=== PATIENT | female | born 1930 | race Caucasian/White ===

== ENCOUNTER 2017-04-04 12:47 | Inpatient (IN) | payer OTHER ==
[~2017-04-04] VITALS: Ht 175.3 cm; Wt 37.6 kg
[2017-04-04 13:00] VITALS: Ht 175.3 cm; Wt 37.6 kg
[2017-04-04] MEDS ORDERED: CARTIA XT120 MG PO (13:13)
[2017-04-04] MEDS ORDERED: DILTIAZEM HCL60 M1 PO (13:14)
[2017-04-04] MEDS ORDERED: LIPI10 PO (13:14)
[2017-04-04] MEDS ORDERED: DIGITEK125 MCG PO (13:14)
[2017-04-04 15:11] LABS: BASOPHIL % 0.2 % (0-2); PLATELET COUNT 175 x10^3mcL (130-400); RED CELL DISTRIBUTION WIDTH 14.3 % (11.5-14.5)
[2017-04-04 15:19] LABS: microscopic required? YES; urine erythrocyte TRACE (NEGATIVE)
[2017-04-04 15:58] LABS: ALKALINE PHOSPHATASE 47 U/L (46-116); ALT/SGPT 19 U/L (14-59); AST/SGOT 22 U/L (15-37); BILIRUBIN TOTAL 1.5 mg/dL (0.20-1.00); CALCIUM 9.1 mg/dL (8.5-10.1); CARBON DIOXIDE 35.7 mmol/L (21-32); CHLORIDE SERUM 98 mmol/L (98-107); CREATININE SERUM 0.8 mg/dL (0.6-1.0); GLUCOSE SERUM 134 mg/dL (74-106); POTASSIUM SERUM 4.2 mmol/L (3.5-5.1); SODIUM SERUM 144 mmol/L (136-145); TOTAL PROTEIN, SERUM 7.4 g/dL (6.4-8.2)
[2017-04-04 16:00] LABS: ALBUMIN 3.3 g/dL (3.4-5.0)
[2017-04-04 17:41] VITALS: BP 117/81
[2017-04-04 17:57] LABS: CHOLESTEROL/HDL RATIO 1.4; MAGNESIUM 1.9 mg/dL (1.8-2.4); PHOSPHOROUS 4.4 mg/dL (2.5-4.9)
[2017-04-04 18:05] LABS: T3 TOTAL 1.18 ng/mL
[2017-04-04 18:08] LABS: FREE T4 1.21 ng/dL (0.76-1.46); FREE THYROXINE INDEX 3.3 ug/dL (1.4-4.5); T4(THYROXINE) 9.1 ug/dL (4.7-13.3)
[2017-04-04 20:42] VITALS: BP 124/76
[2017-04-05] VITALS (8 sets, daily range): BP systolic 98–140; BP diastolic 63–89
[2017-04-05 07:16] LABS: BASOPHIL % 0.1 % (0-2); PLATELET COUNT 166 x10^3mcL (130-400); RED CELL DISTRIBUTION WIDTH 14.5 % (11.5-14.5)
[2017-04-05 08:39] LABS: CALCIUM 8.7 mg/dL (8.5-10.1); CARBON DIOXIDE 32.2 mmol/L (21-32); CHLORIDE SERUM 103 mmol/L (98-107); CREATININE SERUM 0.7 mg/dL (0.6-1.0); GLUCOSE SERUM 129 mg/dL (74-106); MAGNESIUM 1.9 mg/dL (1.8-2.4); PHOSPHOROUS 4.3 mg/dL (2.5-4.9); POTASSIUM SERUM 4.2 mmol/L (3.5-5.1); SODIUM SERUM 144 mmol/L (136-145)
[2017-04-06 05:56] VITALS: BP 129/80
[2017-04-06 07:20] LABS: PLATELET COUNT 176 x10^3mcL (130-400)
[2017-04-06 07:21] LABS: BASOPHIL % 0 % (0-2); RED CELL DISTRIBUTION WIDTH 14.6 % (11.5-14.5)
[2017-04-06 08:06] LABS: CALCIUM 8.4 mg/dL (8.5-10.1); CARBON DIOXIDE 33.4 mmol/L (21-32); CHLORIDE SERUM 104 mmol/L (98-107); CREATININE SERUM 0.7 mg/dL (0.6-1.0); GLUCOSE SERUM 97 mg/dL (74-106); POTASSIUM SERUM 3.7 mmol/L (3.5-5.1); SODIUM SERUM 145 mmol/L (136-145)
[2017-04-06 08:09] LABS: MAGNESIUM 1.8 mg/dL (1.8-2.4); PHOSPHOROUS 2.7 mg/dL (2.5-4.9)
[2017-04-06 09:11] VITALS: BP 143/98
[2017-04-06 13:50] VITALS: BP 126/73
[2017-04-06 15:11] VITALS: BP 128/79
[2017-04-06 18:39] VITALS: BP 109/69
[2017-04-06 20:35] VITALS: BP 136/71
[2017-04-07 05:49] VITALS: BP 136/72
[2017-04-07 07:01] LABS: BASOPHIL % 0.3 % (0-2); PLATELET COUNT 189 x10^3mcL (130-400); RED CELL DISTRIBUTION WIDTH 14.6 % (11.5-14.5)
[2017-04-07 07:36] LABS: CALCIUM 8.5 mg/dL (8.5-10.1); CARBON DIOXIDE 33.2 mmol/L (21-32); CHLORIDE SERUM 103 mmol/L (98-107); CREATININE SERUM 0.6 mg/dL (0.6-1.0); GLUCOSE SERUM 110 mg/dL (74-106); MAGNESIUM 1.7 mg/dL (1.8-2.4); PHOSPHOROUS 2.6 mg/dL (2.5-4.9); POTASSIUM SERUM 3.8 mmol/L (3.5-5.1); SODIUM SERUM 142 mmol/L (136-145)
[2017-04-07 11:44] VITALS: BP 132/82
[2017-04-07 14:34] VITALS: BP 135/64
[2017-04-07 17:53] VITALS: BP 136/85
[2017-04-07 21:37] VITALS: BP 157/67
[2017-04-08 05:00] VITALS: BP 127/72
[2017-04-08 08:04] LABS: PLATELET COUNT 215 x10^3mcL (130-400)
[2017-04-08 08:07] LABS: BASOPHIL % 0 % (0-2); RED CELL DISTRIBUTION WIDTH 14.6 % (11.5-14.5)
[2017-04-08 08:10] LABS: CALCIUM 8.4 mg/dL (8.5-10.1); CARBON DIOXIDE 31.7 mmol/L (21-32); CHLORIDE SERUM 100 mmol/L (98-107); CREATININE SERUM 0.6 mg/dL (0.6-1.0); GLUCOSE SERUM 165 mg/dL (74-106); MAGNESIUM 1.9 mg/dL (1.8-2.4); PHOSPHOROUS 4.1 mg/dL (2.5-4.9); POTASSIUM SERUM 4.4 mmol/L (3.5-5.1); SODIUM SERUM 141 mmol/L (136-145)
[2017-04-08 08:59] VITALS: BP 151/93
[2017-04-08] MEDS ORDERED: CARCD120 PO (10:50)
[2017-04-08] MEDS ORDERED: PULMICORT0.5 MG/2 M IH (10:51)
[2017-04-08 12:45] VITALS: BP 113/77
[2017-04-08 13:40] VITALS: BP 113/77
[2017-04-08 17:27] VITALS: BP 113/77
== END 2017-04-08 19:28 | DRG 871 ==
LOC: ED 12:47 → DU 16:19
PROVIDERS: Emergency Medicine; Family Medicine
DX: A41.9 Sepsis, unspecified organism (principal); G93.41 Metabolic encephalopathy; N17.0 Acute kidney failure with tubular necrosis; J96.21 Acute and chronic respiratory failure with hypoxia; J44.1 Chronic obstructive pulmonary disease with (acute) exacerbation; N39.0 Urinary tract infection, site not specified; E44.1 Mild protein-calorie malnutrition; Z68.1 Body mass index [BMI] 19.9 or less, adult; R65.20 Severe sepsis without septic shock; E86.0 Dehydration; R31.9 Hematuria, unspecified; R80.9 Proteinuria, unspecified; R29.6 Repeated falls; Z99.81 Dependence on supplemental oxygen; E78.00 Pure hypercholesterolemia, unspecified; F17.210 Nicotine dependence, cigarettes, uncomplicated; Z53.29 Procedure and treatment not carried out because of patient's decision for other reasons; E78.5 Hyperlipidemia, unspecified; I49.9 Cardiac arrhythmia, unspecified; I16.0 Hypertensive urgency; D64.9 Anemia, unspecified; F41.9 Anxiety disorder, unspecified; I48.91 Unspecified atrial fibrillation; E83.42 Hypomagnesemia; Z79.899 Other long term (current) drug therapy; Z90.710 Acquired absence of both cervix and uterus; Z90.49 Acquired absence of other specified parts of digestive tract
CPT/HCPCS: 36600; 83880; 84439; 92610-GN; 94150; 97110-GP; 97116-GP; 97530-GP; J0696; J2920; J2930; J3490; J7030; J7613; J7620; J7626; J7644; Q0092